=== PATIENT | female | born 1975 | race Caucasian/White ===

== ENCOUNTER → 2021-04-01 12:22 | Outpatient (BNVA) | payer OTHER, SELFPAY | PROVIDERS: PCP Internal Medicine; Visit Provider Physician Assistant Medical | DX: S69.91XA Unspecified injury of right wrist, hand and finger(s), initial encounter (principal); X50.3XXA Overexertion from repetitive movements, initial encounter | CPT/HCPCS: 29125; 73110; 73130; 99203 ==

== ENCOUNTER → 2021-04-07 11:37 | Outpatient (BNVA) | payer OTHER, SELFPAY | PROVIDERS: PCP Internal Medicine; Visit Provider Physician Assistant Medical | DX: S69.81XA Other specified injuries of right wrist, hand and finger(s), initial encounter (principal); X58.XXXA Exposure to other specified factors, initial encounter | CPT/HCPCS: 99213 ==

== ENCOUNTER 2021-04-13 17:54 | Outpatient (REF) | payer OTHER, SELFPAY ==
--- NOTE | ~2021-04-13 | MR_ITS ---
EXAMINATION: MRI HAND WITHOUT CONTRAST, RIGHT CLINICAL INFORMATION: Right hand swelling, thumb immobility. COMPARISON: Radiographs 04/01/2021. TECHNIQUE: MRI without contrast is performed on the right hand. Fine detail is limited by the large [id number] utilized to image the entire hand. FINDINGS: There is subcutaneous soft tissue edema at the base of the thumb and the 1st webspace. No obvious tendon or ligament tear. Marrow edema at the dorsal aspect of the 1st metacarpal head may represent a contusion or may be degenerative. There are degenerative marrow changes noted at the junction of the trapezoid and capitate dorsally. MR/MR hand RT wo con IMPRESSION: Soft tissue edema at the base of the thumb and possible contusion at the dorsal aspect of the 1st metacarpal head. No obvious tendon or ligament tear.
== END 2021-04-13 17:55 | disposition home or self-care (01) ==
LOC: HO.MRI 17:54
PROVIDERS: PCP Internal Medicine; Visit Provider Internal Medicine
DX: M79.641 Pain in right hand (principal)
CPT/HCPCS: 73218

== ENCOUNTER → 2021-04-16 09:57 | Outpatient (BNVA) | payer OTHER, SELFPAY | PROVIDERS: PCP Internal Medicine; Visit Provider Physician Assistant | DX: S63.610A Unspecified sprain of right index finger, initial encounter (principal); X58.XXXA Exposure to other specified factors, initial encounter | CPT/HCPCS: 99213 ==

== ENCOUNTER → 2021-04-28 10:04 | Outpatient (BNVA) | payer OTHER, SELFPAY | PROVIDERS: PCP Internal Medicine; Visit Provider Physician Assistant | DX: S69.91XD Unspecified injury of right wrist, hand and finger(s), subsequent encounter (principal); X58.XXXD Exposure to other specified factors, subsequent encounter | CPT/HCPCS: 99213 ==

== ENCOUNTER 2021-05-06 10:00 | Outpatient (RCR) | payer OTHER, SELFPAY | END 2021-05-14 08:33 | disposition other institution (70) | LOC: HO.OT 10:00 | PROVIDERS: PCP Internal Medicine; Visit Provider Physician Assistant | DX: S60.011D Contusion of right thumb without damage to nail, subsequent encounter (principal) | CPT/HCPCS: 97035; 97110; 97165; 97530 ==

== ENCOUNTER → 2021-05-06 11:16 | Outpatient (BNVA) | payer OTHER, SELFPAY | PROVIDERS: PCP Internal Medicine; Visit Provider Physician Assistant Medical | DX: S60.011D Contusion of right thumb without damage to nail, subsequent encounter (principal); X58.XXXD Exposure to other specified factors, subsequent encounter | CPT/HCPCS: 99213 ==

== ENCOUNTER → 2021-11-17 14:56 | Outpatient (BNVA) | payer OTHER, SELFPAY | PROVIDERS: PCP Internal Medicine; Visit Provider Physician Assistant | DX: S50.01XA Contusion of right elbow, initial encounter (principal); S80.01XA Contusion of right knee, initial encounter; W01.0XXA Fall on same level from slipping, tripping and stumbling without subsequent striking against object, initial encounter | CPT/HCPCS: 99203 ==

== ENCOUNTER → 2021-11-24 13:29 | Outpatient (BNVA) | payer OTHER, SELFPAY | PROVIDERS: PCP Internal Medicine; Visit Provider Physician Assistant | DX: S80.01XA Contusion of right knee, initial encounter (principal); Y04.2XXA Assault by strike against or bumped into by another person, initial encounter | CPT/HCPCS: 73564; 99214 ==

== ENCOUNTER → 2021-11-30 10:55 | Outpatient (BNVA) | payer OTHER, SELFPAY | PROVIDERS: PCP Internal Medicine; Visit Provider Physician Assistant Medical | DX: S50.01XD Contusion of right elbow, subsequent encounter (principal); S80.01XD Contusion of right knee, subsequent encounter; Y04.2XXD Assault by strike against or bumped into by another person, subsequent encounter | CPT/HCPCS: 99213 ==

== ENCOUNTER → 2021-12-14 09:15 | Outpatient (BNVA) | payer OTHER, SELFPAY | PROVIDERS: PCP Internal Medicine; Visit Provider Physician Assistant Medical | DX: S80.01XD Contusion of right knee, subsequent encounter (principal); Y04.2XXD Assault by strike against or bumped into by another person, subsequent encounter | CPT/HCPCS: 99213 ==

== ENCOUNTER 2021-12-22 10:00 | Outpatient (RCR) | payer OTHER, SELFPAY ==
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
--- NOTE | 2022-01-19 08:34 | MHC.PT.DC ---
[facility] [place] Office [place] Office [place] Office [address] Elaine Willis [address] [phone] F: [phone] F: [phone] F: [phone] F: [phone] Physical Therapy Discharge Report Diagnosis: R knee contusion Date of Surgery: NA Date of Evaluation: 12/03/21 Date of Discharge: 01/19/22 Treatments to Date: 6 Cancellations to Date: 0 No Shows to Date: 0 Discharge Status: Patient Elected to Stop Discharge Summary: Vanessa did not return to therapy after 6 visits. She was improving with therapy and was independent with her HEP. She has therefore been d/c from therapy. Electronically signed by: Stephanie Lee PT DPT Please sign and return to therapist. Thank you for your referral.
== END 2022-01-19 08:35 | disposition home or self-care (01) ==
LOC: HO.PT 10:00
PROVIDERS: PCP Internal Medicine; Visit Provider Physician Assistant Medical
DX: S80.01XD Contusion of right knee, subsequent encounter (principal)
CPT/HCPCS: 97110; 97161; 97530

== ENCOUNTER → 2021-12-22 12:59 | Outpatient (BNVA) | payer OTHER, SELFPAY | PROVIDERS: PCP Internal Medicine; Visit Provider Physician Assistant Medical | DX: S80.01XD Contusion of right knee, subsequent encounter (principal); Y04.2XXD Assault by strike against or bumped into by another person, subsequent encounter | CPT/HCPCS: 99213 ==

== ENCOUNTER 2021-12-31 14:16 | Outpatient (REF) | payer OTHER, SELFPAY ==
--- NOTE | ~2021-12-31 | MR_ITS ---
EXAMINATION: MR KNEE WITHOUT CONTRAST, RIGHT CLINICAL INFORMATION: Right knee pain. COMPARISON: Radiographs 11/24/2021. TECHNIQUE: MRI of the knee without contrast was performed using routine sequences on a high-field scanner. FINDINGS: MENISCI: Medial Meniscus: Intact Lateral Meniscus: Focal inner margin blunting of the posterior horn on sagittal image 19. No definite tear. LIGAMENTS: Cruciate: Intact. Collateral: Intact. EXTENSOR MECHANISM: Intact. ARTICULAR CARTILAGE/BONE: Patellofemoral Compartment: Mild cartilage thinning and surface irregularity of the medial patellar facet and medial trochlea peripherally. Medial Compartment: Mild cartilage thinning and surface irregularity throughout the weightbearing femoral condyle. Lateral Compartment: Focal cartilage thinning and irregularity of the tibia posteriorly and minimal surface irregularity of the posterior nonweightbearing femoral condyle. JOINT FLUID AND BURSAE: Trace joint effusion. MR/MR knee RT wo con IMPRESSION: Minimal inner margin blunting of the posterior horn of the lateral meniscus. Menisci are otherwise intact. Mild tricompartmental osteoarthritis with a trace joint effusion.
== END 2021-12-31 14:17 | disposition home or self-care (01) ==
LOC: HO.MRI 14:16
PROVIDERS: Visit Provider Internal Medicine
DX: M25.561 Pain in right knee (principal)
CPT/HCPCS: 73721

== ENCOUNTER → 2022-01-05 15:47 | Outpatient (BNVA) | payer OTHER, SELFPAY | PROVIDERS: PCP Internal Medicine; Visit Provider Physician Assistant Medical | DX: S80.01XD Contusion of right knee, subsequent encounter (principal); Y04.2XXD Assault by strike against or bumped into by another person, subsequent encounter | CPT/HCPCS: 99213 ==